=== PATIENT | female | born 1980 | race African-American/Black ===

== ENCOUNTER 2023-06-23 18:22 | Emergency (ER) | payer OTHER ==
[~2023-06-23] VITALS: Ht 170.2 cm; Wt 69.1 kg
[2023-06-23 18:54] VITALS: BP 130/76; PULSE 114; RESP 15; TEMP 98.3
[2023-06-23 19:25] LABS: BASOPHILS % (AUTO) 0.4 % (0.0-2.0); HEMATOCRIT 34.5 % (36-46); HEMOGLOBIN 11.6 g/dL (12.0-16.0); LYMPHOCYTES # (AUTO) 1.4 K/uL (1.0-4.8); LYMPHOCYTES % (AUTO) 17.5 % (22.0-44.0); MEAN CORPUSCULAR HEMOGLOBIN 28.1 pg (26.0-34.0); MEAN CORPUSCULAR HGB CONC 33.5 G/dL (31.0-37.0); MEAN CORPUSCULAR VOLUME 84 fL (80-100); MONOCYTES # (AUTO) 0.4 K/uL (0.1-1.0); MONOCYTES % (AUTO) 5.3 % (2.0-9.0); NEUTROPHILS % (AUTO) 74.8 % (40.0-70.0); PLATELET COUNT (AUTO) 299 K/uL (150-450); RED BLOOD CELL COUNT(AUTO) 4.11 MIL/uL (4.00-5.20); RED CELL DISTRIBUTION WIDTH 15.5 % (11.5-14.5)
[2023-06-23 19:36] LABS: ALCOHOL, BLOOD (SERUM) < 3 mg/dL (0-10)
[2023-06-23 19:59] LABS: COVID AG,FIA SOURCE NASAL SWAB
[2023-06-23 20:15] LABS: ANION GAP 9 mmol/L (8-16); CALCIUM, TOTAL 8.9 mg/dL (8.8-10.5); CARBON DIOXIDE 25 mmol/L (22-29); CHLORIDE 103 mmol/L (98-107); CREATININE 1.24 mg/dL (0.60-1.30); GLOMERULAR FILTR. RATE CALC 57 mL/min (>60); GLUCOSE,RANDOM 72 mg/dL (70-110); POTASSIUM 4.1 mmol/L (3.5-5.1); SODIUM SERUM 137 mmol/L (136-145); UREA NITROGEN, BLOOD 16 mg/dL (7-18)
[2023-06-23 20:21] LABS: ALANINE AMINOTRANSFERASE 29 U/L (12-78); ALBUMIN 3.8 g/dL (3.4-5.0); ALKALINE PHOSPHATASE 82 U/L (46-116); ASPARTATE AMINOTRANSFERASE 33 U/L (15-37); BILIRUBIN,TOTAL 0.2 mg/dL (0.1-1.0); TOTAL PROTEIN, SERUM 8.3 g/dL (6.4-8.2)
[2023-06-23 20:24] LABS: SARS-COV2 (COVID) ANTIGEN,FIA Negative (Negative)
[2023-06-23 20:39] LABS: PH,URINE DRUG SCREEN 5.5 (5.0-8.0)
[2023-06-23 20:46] LABS: ALCOHOL, URINE DRUG SCREEN NEGATIVE (NEGATIVE); AMPHET/METH SCREEN,URINE POSITIVE (NEGATIVE); BARBITURATE SCREEN, URINE NEGATIVE (NEGATIVE); BENZODIAZEPINES SCREEN,URINE POSITIVE (NEGATIVE); CANNABINOID SCREEN,URINE POSITIVE (NEGATIVE); COCAINE SCREEN,URINE POSITIVE (NEGATIVE); METHADONE SCREEN, URINE NEGATIVE (NEGATIVE); OPIATE SCREEN,URINE NEGATIVE (NEGATIVE); PHENCYCLIDINE SCREEN,URINE POSITIVE (NEGATIVE)
== END 2023-06-23 21:19 | disposition home or self-care (01) ==
LOC: EMS 18:22
DX: R45.1 Restlessness and agitation (principal); F31.9 Bipolar disorder, unspecified; F41.9 Anxiety disorder, unspecified; F12.90 Cannabis use, unspecified, uncomplicated; Z20.822 Contact with and (suspected) exposure to COVID-19
CPT/HCPCS: 99283; 87426; 80053; 84703; 85025; 36415; 80307; G0480